=== PATIENT | male | born 1990 | race Caucasian/White ===

== ENCOUNTER 2017-02-05 11:08 | Emergency (ER) | payer MEDICAID ==
[~2017-02-05] VITALS: Ht 157.5 cm; Wt 89.0 kg
[~2017-02-05 11:08] MED LIST: AMO500 PO; IBUP-1542 PO
[2017-02-05 11:10] VITALS: Ht 157.5 cm; Wt 89.0 kg
--- NOTE | 2017-02-05 11:49 | ERA ---
ER Documentation Chief Complaint Date/Time DATE: 02/05/17 TIME: 11:43 Chief Complaint flu like symptoms x 2 days, st, body aches HPI This is a 26-year-old male with a history of high blood pressure and chronic daily tobacco use who is presenting with intermittent fever, chills, sore throat and full body aches for 1-2 days. The patient reports feeling general fatigue and mild body aches starting yesterday. However, after waking this morning he developed a sore throat, pain with swallowing, no drooling, no change in voice. His full body aches also intensified, which prompted him to come to the emergency department. Patient denies headache. He has had some abdominal cramps with mild nausea, but no vomiting. He has had mild decreased appetite. He does describe tender swollen glands bilaterally in his neck around his throat. He denies any chest pain or trouble breathing. He denies any changes to bowel movements or urination. The patient is sexually active with one partner and reports that his partner was treated for gonorrhea and chlamydia a proximally 1 week ago. He has not followed up on this yet. The patient denies any pain or burning or bleeding or discharge from his urethra or with urination. He denies any rash or ulceration or any changes to his genitourinary area. However, he does report being sexually active with this individual around the time that she was diagnosed with the sexually transmitted infections. He denies any oral sexual activity. ROS All systems reviewed and are negative except as per history of present illness. Medications Home Meds Active Scripts Amoxicillin Trihydrate (Amoxicillin) 500 Mg Tablet, 500 MG PO BID, #20 TAB Prov:AVELINO BURNETT MD 02/05/17 Amoxicillin* (Amoxicillin*) 500 Mg Cap, 500 MG PO TID for 10 Days, CAP Prov:ESME PATTON MD 09/13/15 Ibuprofen* (Motrin*) 600 Mg Tab, 600 MG PO Q6H Y for PAIN AND OR ELEVATED TEMP, #30 TAB Prov:ESME PATTON MD 09/13/15 Allergies Allergies: Coded Allergies: No Known Allergy (Unverified , 09/13/15) PMhx/Soc Hx Cardiac Disorders: Yes (HTN) Hx Alcohol Use: Yes Hx Substance Use: No Hx Tobacco Use: Yes Smoking Status: Current every day smoker FmHx Family History: No diabetes Physical Exam Vitals Vital Signs Date Time Temp Pulse Resp B/P Pulse Ox O2 Delivery O2 Flow Rate FiO2 02/05/17 11:10 99.6 97 18 134/6 99 Physical Exam Const: No apparent distress. Head: Atraumatic Eyes: Normal Conjunctiva ENT: Normal External Ears, Nose. Bilateral tonsillar exudate. Uvula midline with no asymmetry. No asymmetric swelling or fluctuance to either tonsil. No drooling. No trismus. Neck: Full range of motion..~ No meningismus. Resp: Clear to auscultation bilaterally Cardio: Regular rate and rhythm, no murmurs Abd: Soft, non tender, non distended. Normal bowel sounds Skin: No petechiae or rashes Back: No midline or flank tenderness Ext: No cyanosis, or edema Neur: Awake and alert Psych: Normal Mood and Affect Results 24 hrs Current Medications Medications (Trade) Dose Ordered Sig/Alyssa Route PRN Reason Start Time Stop Time Status Last Admin Dose Admin Ibuprofen (Motrin) 800 mg ONCE ONCE PO 02/05/17 12:00 02/05/17 12:03 DC 02/05/17 11:54 Ceftriaxone Sodium (Rocephin) 250 mg ONCE ONCE IM 02/05/17 12:00 02/05/17 12:03 DC 02/05/17 11:54 Azithromycin (Zithromax) 1,000 mg ONCE ONCE PO 02/05/17 12:00 02/05/17 12:03 DC 02/05/17 11:54 Lidocaine (Xylocaine 1% (Mdv) 20 ml) 20 ml ONCE ONCE IM 02/05/17 12:00 02/05/17 12:03 DC Procedures/MDM The patient presents with findings consistent with strep pharyngitis. He does describe mild but inconsistent cough. However, he has had subjective fevers at home with mild lymphadenopathy and tonsillar exudate. A group A strep test was sent off, but it has a low sensitivity and my suspicion for this is high. I will treat for this via a prescription at home. The patient does describe being exposed to sexually transmitted infection recently. The patient will be treated prophylactically although he does not presently have symptoms consistent with an active infection. The patient was also given ibuprofen in the emergency department. This improved his symptoms immensely. The patient was given instruction to maintain adequate oral hydration in addition to utilization of Tylenol and ibuprofen as directed [id number]. Patient needs to follow-up with primary care physician and to 3 days for reevaluation. He was given precautions with which to return to the emergency department. Departure Diagnosis: Primary Impression: Strep throat Additional Impression: Exposure to STD Condition: Stable Patient Instructions: Strep Throat, What Are Sexually Transmitted Diseases ( STDs)? Additional Instructions: Thank you for for coming to [facility] for your care today. Please ask your nurse or provider if you have questions about your care today and do not leave until all your questions have been answered. Please use any medications given as directed and follow-up with your doctor (or the doctor you were referred to) in the next 2-3 days. If you do not have a primary care doctor you may [place] [facility] [place] You may also use motrin and tylenol as needed for fever and/or pain unless instructed otherwise by your provider or nurse. Indications for more urgent follow-up have been discussed, but you may return to the Emergency Department at ANY time for any worrisome or worsening symptoms. If you have abdominal pain, please know that no test or exam you received is perfect and you should follow up within 8 hours for continued pain. If you had any imaging studies today, such as an X-Ray or CT Scan, these studies will be reviewed later by a radiologist. You will be called if there are important findings that were not identified today, so make sure the contact information you provided at registration is correct. If you received any narcotic pain control medicine today, such as Vicodin, Morphine or Dilaudid, your coordination and judgment may be affected for a number of hours. Please do not drive or operate heavy machinery, and you may want someone to assist you at home. If you were given a prescription for narcotic medication, be aware that it is very addictive- use sparingly and only if necessary. AVELINO BURNETT MD Feb 05, 2017 11:49
[2017-02-05] MEDS ORDERED: AZITHROMYCIN 250 MG TAB PO ONE (12:00)
[2017-02-05] MEDS ORDERED: CEFTRIAXONE 250 MG INJ IM ONE (12:00)
[2017-02-05] MEDS ORDERED: LIDOCAINE 1% (MDV) 20 ML INJ IM ONE (12:00)
[2017-02-05] MEDS ORDERED: IBUPROFEN 800 MG TAB PO ONE (12:00)
[2017-02-05] MEDS ORDERED: AMOX500T PO (13:39)
== END 2017-02-05 13:47 | disposition home or self-care (01) ==
LOC: FTE 11:08
DX: J02.0 Streptococcal pharyngitis (principal); I10 Essential (primary) hypertension; F17.210 Nicotine dependence, cigarettes, uncomplicated; Z20.2 Contact with and (suspected) exposure to infections with a predominantly sexual mode of transmission
CPT/HCPCS: 87880; 96372; J0696; Z7502; Z7610

== ENCOUNTER 2018-04-26 13:28 | Emergency (ER) | END 2018-04-26 18:04 | disposition home or self-care (01) ==